=== PATIENT | male | born 1980 | race Caucasian/White ===

== ENCOUNTER → 2021-03-27 08:46 | Outpatient (CLI) | payer SELFPAY ==
[2021-03-27 19:22] LABS: Alanine Aminotransferase 91 IU/L (<50); Albumin Globulin Ratio 1.9 (1.0-2.8); Alkaline Phosphatase 66 U/L (38-126); Aspartate Aminotransferase 82 IU/L (17-59); BUN Creatinine Ratio 12.9 (6-22); Bilirubin Total 0.5 mg/dL (0.2-1.3); Blood Urea Nitrogen 9 mg/dL (9-20); Calcium 10.1 mg/dL (8.4-10.2); Carbon Dioxide 28 mmol/L (22-32); Chloride 102 mmol/L (98-107); Cholesterol 215 mg/dL (140-199); Estimated Glomerular Filt Rate > 60.0 mL/min (>60); Globulin 2.6 g/dL (1.7-4.1); Glucose 76 mg/dL (70-100); HDL Cholesterol 100 mg/dL (40-60); HEMOLYSIS < 15 (0-50); LDL Cholesterol Calculated 85 mg/dL (<100); Potassium 4.3 mmol/L (3.4-5.1); Sodium 141 mmol/L (137-145); Total Protein 7.6 g/dL (6.3-8.2); Triglycerides 150 mg/dL (35-150)
[2021-03-27 19:51] LABS: TSH w/ Reflex to FT4 3.45 uIU/mL (0.47-4.68)
== END ==
PROVIDERS: PCP Physician Assistant; Visit Provider Physician Assistant
DX: E03.1 Congenital hypothyroidism without goiter (principal); R25.3 Fasciculation; Z13.220 Encounter for screening for lipoid disorders
CPT/HCPCS: 80053; 80061; 84443

== ENCOUNTER → 2021-10-25 09:21 | Outpatient (CLI) | payer OTHER, SELFPAY ==
[2021-10-25 19:06] LABS: Follicle Stimulating Hormone 3.75 mIU/mL; Luteinizing Hormone 3.42 mIU/mL
[2021-10-25 19:20] LABS: Thyroid Stimulating Hormone 5.56 uIU/mL (0.47-4.68)
[2021-10-25 19:22] LABS: Estradiol, Total 21.1 pg/mL
[2021-10-25 19:26] LABS: Testosterone 406 ng/dL (132-813)
== END ==
PROVIDERS: PCP Physician Assistant; Visit Provider Urology
DX: Z71.89 Other specified counseling (principal)
CPT/HCPCS: 82670; 83001; 83002; 84146; 84403; 84443

== ENCOUNTER → 2022-03-27 09:32 | Outpatient (CLI) | payer SELFPAY ==
[2022-03-27 20:23] LABS: Alanine Aminotransferase 44 IU/L (<50); Albumin 4.8 g/dL (3.5-5.0); Albumin Globulin Ratio 2.1 (1.0-2.8); Alkaline Phosphatase 67 U/L (38-126); Aspartate Aminotransferase 53 IU/L (17-59); Bilirubin Total 0.7 mg/dL (0.2-1.3); Blood Urea Nitrogen 9 mg/dL (9-20); Calcium 9.4 mg/dL (8.4-10.2); Carbon Dioxide 25 mmol/L (22-32); Chloride 102 mmol/L (98-107); Cholesterol 237 mg/dL (140-199); Estimated Glomerular Filt Rate > 60 mL/min (>60); Globulin 2.3 g/dL (1.7-4.1); Glucose 75 mg/dL (70-100); HDL Cholesterol 68 mg/dL (40-60); HEMOLYSIS < 15 (0-50); LDL Cholesterol Calculated 116 mg/dL (<100); Potassium 4.1 mmol/L (3.4-5.1); Sodium 138 mmol/L (137-145); Total Protein 7.1 g/dL (6.3-8.2); Triglycerides 264 mg/dL (35-150)
[2022-03-27 20:46] LABS: TSH w/ Reflex to FT4 2.91 uIU/mL (0.47-4.68)
== END ==
PROVIDERS: PCP Physician Assistant; Visit Provider Physician Assistant
DX: E03.9 Hypothyroidism, unspecified (principal); E03.1 Congenital hypothyroidism without goiter; E78.89 Other lipoprotein metabolism disorders; R74.8 Abnormal levels of other serum enzymes
CPT/HCPCS: 80053; 80061; 84443